=== PATIENT | female | born 1995 | race Hispanic/Latino ===

== ENCOUNTER 2019-11-12 23:24 | Inpatient (IN) ==
[2019-11-13] MEDS ORDERED: PEPCID IV PRN (00:46)
[2019-11-13] MEDS ORDERED: AMPICILLIN 2 GM in NS 100 ML IV ONE (00:46)
[2019-11-13] MEDS ORDERED: PEPCID PO PRN (00:46)
[2019-11-13] MEDS ORDERED: LR 500 ML IV ONE (00:46)
[2019-11-13] MEDS ORDERED: REGLAN PO ONE (00:46)
[2019-11-13] MEDS ORDERED: TYLENOL PO PRN (00:46)
[2019-11-13] MEDS ORDERED: PEPCID PO ONE (00:46)
[2019-11-13] MEDS ORDERED: STADOL IV PRN (00:46)
[2019-11-13] MEDS ORDERED: ZOFRAN IV PRN (00:46)
[2019-11-13] MEDS ORDERED: KEFZOL 1 GM/D5W 1 GM/50 ML IVPB IV PRN (00:46)
[2019-11-13 01:00] LABS: URINE SOURCE VOIDED
[2019-11-13] MEDS ORDERED: SODIUM CHLORIDE 0.9% INJ SCH (01:00)
[2019-11-13] MEDS ORDERED: PITOCIN 30 UNITS/NS 30 UNIT/500 ML IV.SOLN IV SCH ×2 (01:00→04:45)
[2019-11-13] MEDS ORDERED: LR 1,000 ML IV SCH (01:00)
[2019-11-13 01:11] LABS: UR AMPHETAMINES QUAL NONE DETECTED (NONE DETECT); UR BARBITUATES QUAL NONE DETECTED (NONE DETECT); UR BENZODIAZEPIN QUAL NONE DETECTED (NONE DETECT); UR CANNABINOIDS QUAL NONE DETECTED (NONE DETECT); UR COCAINE QUAL NONE DETECTED (NONE DETECT); UR METHADONE QUAL NONE DETECTED (NONE DETECT); UR OPIATES QUAL NONE DETECTED (NONE DETECT); UR OXYCODONE QUAL NONE DETECTED (NONE DETECT); UR PCP QUAL NONE DETECTED (NONE DETECT)
[2019-11-13 01:15] LABS: BILIRUBIN URINE NEGATIVE (NEGATIVE); BLOOD URINE MODERATE (NEGATIVE); COLOR YELLOW; GLUCOSE URINE NEGATIVE (NEGATIVE); KETONE URINE TRACE mg/dL (NEGATIVE); LEUKOCYTES URINE MODERATE (NEGATIVE); NITRITE URINE NEGATIVE (NEGATIVE); PH URINE 6.5; PROTEIN URINE 50 mg/dL (NEGATIVE); TURBIDITY URINE HAZY (CLEAR); UROBILINOGEN URINE 2 mg/dL (NORMAL)
[2019-11-13 01:26] LABS: EOS# 0.03 X1000 (0.0-0.7); EOS% 0.3 % (0.0-10.0); HEMATOCRIT 34.2 % (37.0-47.0); HEMOGLOBIN 11.1 g/dL (12.0-16.0); IMM GRAN# 0.02 X1000 (0.0-0.04); IMM GRAN% 0.2 % (0.0-0.5); LYMPH# 1.36 X1000 (1.2-3.4); LYMPH% 12.9 % (20.5-51.1); MCHC 32.5 g/dL (33-37); MCV 92.4 FL (81-99); MONO% 6.7 % (1.7-9.3); MPV 10.4 FL (7.4-10.4); NEUT# 8.41 X1000 (1.4-6.5); NEUT% 79.9 % (42.2-75.2); PLT 236 X1000 (130-400); RDW 13.1 % (11.5-14.5); WBC 10.52 X1000 (4.8-10.8)
[2019-11-13 01:52] LABS: RPR NON-REACTIVE (NONREACTIVE)
[2019-11-13 01:57] LABS: RUBELLA SCREEN NON IMMUNE (IMMUNE)
[2019-11-13 02:02] LABS: RAPID HIV PRESUMPTIVE NEGATIVE
[2019-11-13] MEDS ORDERED: MINERAL OIL PO ONE (04:33)
[2019-11-13] MEDS ORDERED: XYLOCAINE-MPF 1% INJ ONE (04:33)
[2019-11-13] MEDS ORDERED: ATARAX PO PRN (04:43)
[2019-11-13] MEDS ORDERED: BOOSTRIX VACCINE IM ONE (04:43)
[2019-11-13] MEDS ORDERED: NORCO-10 PO PRN (04:43)
[2019-11-13] MEDS ORDERED: M-M-R II VACCINE SUBQ ONE (04:43)
[2019-11-13] MEDS ORDERED: AMBIEN PO PRN (04:43)
[2019-11-13] MEDS ORDERED: PERI MEDS (DERMOPLAST/NUPERCAINAL/TUCKS) MISC PRN (04:43)
[2019-11-13] MEDS ORDERED: BENADRYL IV PRN (04:43)
[2019-11-13] MEDS ORDERED: XYLOCAINE-MPF 1% INJ PRN (04:43)
[2019-11-13] MEDS ORDERED: HYDROXYZINE IM PRN (04:43)
[2019-11-13] MEDS ORDERED: PITOCIN IM PRN (04:43)
[2019-11-13] MEDS ORDERED: BENADRYL PO PRN (04:43)
[2019-11-13] MEDS ORDERED: CYTOTEC PO PRN (04:43)
[2019-11-13] MEDS ORDERED: NORCO-5 PO PRN (04:43)
[2019-11-13] MEDS ORDERED: MINERAL OIL PO PRN (04:43)
[2019-11-13] MEDS ORDERED: PITOCIN 20 UNITS/NS 20 UNITS/1,000 ML IV.SOLN IV SCH (04:45)
[2019-11-13] MEDS ORDERED: AMPICILLIN 1 GM in NS 50 ML IV SCH (04:47)
--- NOTE | 2019-11-13 05:26 | HISTORY AND PHYSICAL ---
HISTORY OF PRESENT ILLNESS: The patient 24-year-old female, G1, P0, who presents to Labor and delivery with complaints of uterine contractions. She has not received care. She did report that she had an ultrasound in May 2019 that placed her due date at November 16, 2019. She has been taking vitamins. She has not reported any rupture of membranes and no vaginal bleeding. PAST MEDICAL HISTORY: Unremarkable. PAST SURGICAL HISTORY: None. PAST OBSTETRIC HISTORY: G1. GYNECOLOGIC HISTORY: Menarche at age 13. REVIEW OF SYSTEMS: All systems reviewed and noncontributory. FAMILY HISTORY: Unremarkable. SOCIAL HISTORY: Tobacco use none. Alcohol use none. MEDICATIONS: vitamins. ALLERGIES: No known drug allergies. PHYSICAL EXAMINATION: VITAL SIGNS: Height 4 feet 10 inches, weight 111 pounds. Temp 98.2 degrees, blood pressure 136/80, pulse of 64, respirations 20. heart rate in the 140s with good [id number] variability. HEENT: Pupils equal, round, reactive to light accommodation. Extraocular movements intact. Oropharynx clear. NECK: Supple. No thyromegaly. LUNGS: Clear to auscultation. HEART: Regular rate and rhythm. ABDOMEN: Gravid, appears term. PELVIC: Cervix was 9 cm dilated, completely effaced, and -2 station. Vertex presentation was noted with a bulging bag that was intact. EXTREMITIES: No clubbing, cyanosis, or edema noted. NEUROLOGIC: Cranial nerves 2-12 grossly intact. Motor 5/5. ASSESSMENT AND PLAN: A 24-year-old female, G1 at near term presents in active labor. The patient has not received care. Will obtain lab panel and will treat with IV antibiotics due to unknown group B strep status. cc: Rene Cartagena III, MD
--- NOTE | 2019-11-13 08:14 | OPERATIVE NOTE ---
PROCEDURE DATE: 11/13/2019 VAGINAL DELIVERY NOTE: The patient progressed to complete and pushing. Had spontaneous vaginal delivery of a male infant, 6 pounds 10 ounces with Apgars of 9 and 9 at 0413 over a second-degree midline episiotomy. was bulb suctioned of nose and mouth. At this time, cord blood sample was obtained. The placenta was then delivered intact with three vessel cord. Second-degree midline episiotomy repaired with 3-0 chromic. ESTIMATED BLOOD LOSS: 150 mL. ANESTHESIA: 5 mL of 1% lidocaine. COUNTS: All counts were correct x2. cc: Rene Cartagena III, MD
[2019-11-13] MEDS: MOTRIN PO PRN (16:08)
[2019-11-13 18:13] LABS: HIV ANTIBODY SCREEN SEE COMMENTS
[2019-11-13] MEDS: PERICOLACE PO SCH (22:56)
[2019-11-14] MEDS: MOTRIN PO PRN ×2 (00:51→16:11)
[2019-11-14 05:57] LABS: BASO# 0.02 X1000 (0.0-0.2); BASO% 0.2 % (0.0-0.8); EOS# 0.06 X1000 (0.0-0.7); EOS% 0.6 % (0.0-10.0); HEMOGLOBIN 8.4 g/dL (12.0-16.0); IMM GRAN# 0.02 X1000 (0.0-0.04); IMM GRAN% 0.2 % (0.0-0.5); LYMPH# 2.64 X1000 (1.2-3.4); MCH 29.5 PG (27-31); MCHC 31.1 g/dL (33-37); MCV 94.7 FL (81-99); MONO# 0.51 X1000 (0.11-0.59); MONO% 5.4 % (1.7-9.3); MPV 10.1 FL (7.4-10.4); NEUT# 6.17 X1000 (1.4-6.5); NEUT% 65.6 % (42.2-75.2); PLT 187 X1000 (130-400); RBC 2.85 XMIL (4.2-5.4); RDW 13.5 % (11.5-14.5); WBC 9.42 X1000 (4.8-10.8)
--- NOTE | 2019-11-14 08:02 | OB/GYN PROGRESS NOTE ---
- Subjective Pt seen and examined. Reports mild lower abdominal pain. Pain well controlled with PO pain meds. Ambulating and urinating w/o difficulty. Tolerating reguclar diet, denies N/V. Reports decreased lochia. +bottle feeding. Declined contraception post delivery OB Physical Exam Vital Signs - 8 hr 11/14/19 00:00 11/14/19 07:34 Temperature 96.4 F L 97 F L Pulse Rate 52 L 65 Respiratory Rate 16 18 Blood Pressure 94/51 114/70 O2 Sat by Pulse Oximetry 96 98 - CONSTITUTIONAL General Appearance: appears well, alert, no apparent distress - RESPIRATORY Respiratory: lungs clear - CARDIOVASCULAR Cardiovascular: regular rate, rhythm - GASTROINTESTINAL (ABDOMEN) Abdominal Exam: non tender, soft (FF at umbilicus) - MUSCULOSKELETAL Extremity: no calf tenderness Active Medications Generic Name Dose Route Start Last Admin Trade Name Freq PRN Reason Stop Dose Admin Acetaminophen 650 mg 11/13/19 00:46 Tylenol PO Q4-6H PRN PRN Headache Hydrocodone Bitart/Acetaminophen 1 each 11/13/19 04:43 [place]-10 PO Q3-4H PRN PRN Pain (7-10 on Pain Scale) Hydrocodone Bitart/Acetaminophen 1 each 11/13/19 04:43 11/13/19 22:57 [place]-5 PO 1 each Q3-4H PRN PRN Administration Pain (1-6 on Pain Scale) Benzocaine 1 each 11/13/19 04:43 11/13/19 10:05 [place]achell Meds (Dermoplast/Nupercainal/Tucks) MISC 1 applicatn 3-4XDAY PRN PRN Administration episiotomy/hemorrhoids Butorphanol Tartrate 2 mg 11/13/19 00:46 11/13/19 04:19 Stadol IV 2 mg PRN PRN Administration Pain Diphenhydramine HCl 12.5 mg 11/13/19 04:43 Benadryl IV Q4H PRN PRN Itching Diphenhydramine HCl 25 mg 11/13/19 04:43 Benadryl PO Q4H PRN PRN Itching Famotidine 20 mg 11/13/19 00:46 Pepcid IV Q12H PRN PRN GI upset or indigestion Famotidine 40 mg 11/13/19 00:46 Pepcid PO Q12H PRN PRN GI upset or indigestion Ferrous Sulfate 325 mg 11/14/19 09:00 Ferrous Sulfate PO BID HARI Hydroxyzine HCl 50 mg 11/13/19 04:43 Atarax PO Q3-4H PRN PRN Nausea Hydroxyzine HCl 50 mg 11/13/19 04:43 Hydroxyzine IM Q3-4H PRN PRN Nausea Cefazolin Sodium/Dextrose 1 gm in 50 mls @ 100 mls/hr 11/13/19 00:46 Kefzol 1 Gm/D5w IV ONCE PRN PRN SECTION Oxytocin/Sodium Chloride 20 units in 1,000 mls @ 0 mls/hr 11/13/19 04:45 04:50 Pitocin 20 Units/Ns IV 125 mls/hr .Q0M HARI Administration As Directed Ibuprofen 800 mg 11/13/19 04:43 11/14/19 00:51 Motrin PO 800 mg Q8H PRN PRN Administration cramping Lidocaine HCl 30 ml 11/13/19 04:43 Xylocaine-Mpf 1% INJ PRN PRN Perineal repair Mineral Oil 30 ml 11/13/19 04:43 Mineral Oil PO PRN PRN Perineal massage Misoprostol 800 microgm 11/13/19 04:43 Cytotec PO PRN PRN Severe bleeding Ondansetron HCl 4 mg 11/13/19 00:46 Zofran IV PRN PRN Nausea Oxytocin 20 unit 11/13/19 04:43 Pitocin IM PRN PRN Severe bleeding Senna/Docusate Sodium 1 each 11/13/19 21:00 11/13/19 22:56 Pericolace PO 1 each QHS HARI Administration Sodium Chloride 5 - 10 ml 11/13/19 01:00 Sodium Chloride 0.9% INJ DIRECTED HARI Zolpidem Tartrate 10 mg 11/13/19 04:43 Ambien PO HS PRN PRN Sleep Laboratory Results - last 24 hr 11/13/19 11/14/19 02:02 05:06 WBC 9.42 RBC 2.85 L Hgb 8.4 L D Hct 27.0 L D MCV 94.7 MCH 29.5 MCHC 31.1 L RDW Std Deviation 13.5 Plt Count 187 MPV 10.1 Immature Gran % (Auto) 0.2 Neut % (Auto) 65.6 Lymph % (Auto) 28.0 [place] % (Auto) 5.4 Eos % (Auto) 0.6 Baso % (Auto) 0.2 Immature Gran # (Auto) 0.02 Neut # (Auto) 6.17 Lymph # (Auto) 2.64 [place] # (Auto) 0.51 Eos # (Auto) 0.06 Baso # (Auto) 0.02 HIV 1&2 Antibody Screen SEE COMMENTS OB Assessment & Plan (1) Vaginal delivery Status: Acute Plan: 24yo PPD#1 s/p -Hgb at 8, will start on ferrous sulfate -HD stable -reg diet -oob to ambulation -con't routine pp care -plan for d/c home tomorrow
[2019-11-14 09:18] LABS: HEPATITIS B SURFACE ANTIGEN SEE COMMENTS
[2019-11-14] MEDS: FERROUS SULFATE PO SCH ×2 (11:31→23:47)
[2019-11-14] MEDS: PERICOLACE PO SCH (23:47)
[2019-11-15] MEDS: MOTRIN PO PRN (02:50)
[2019-11-15 08:52] VITALS: BP 117/66
[2019-11-15] MEDS: FERROUS SULFATE PO SCH (12:32)
--- NOTE | 2019-11-16 07:42 | DISCHARGE SUMMARY ---
ADMISSION DATE: 11/13/2019 DISCHARGE DATE: 11/15/2019 The patient this morning without complaints. Her vital signs are stable. Temperature of 97.2 degrees. The patient underwent a vaginal delivery without any problems. Today is post day #2. She will be discharged home with plans to follow up with her doctor in 4 to 6 weeks. cc: MD Rene Parr III, MD
== END 2019-11-15 12:40 | disposition home or self-care (01) | DRG 807 ==
LOC: P.ED 23:24 → LD 11-13 00:25
PROVIDERS: ADMIT Obstetrics & Gynecology; ATTEND Obstetrics & Gynecology